=== PATIENT | male | born 1935 | race Two or more races ===

== ENCOUNTER 2016-08-26 12:59 | Emergency (ER) | payer MEDICARE ==
[~2016-08-26] VITALS: Ht 167.6 cm; Wt 53.3 kg
[2016-08-26] MEDS ORDERED: BLOOD PRESSURE MEDS (13:27)
[2016-08-26] MEDS ORDERED: LOVA10TA PO (13:27)
[2016-08-26] MEDS ORDERED: METF10002 PO (13:27)
[2016-08-26] MEDS ORDERED: GLIP5TAB10 PO (13:27)
[2016-08-26] MEDS ORDERED: SODIUM CHLORIDE 0.9% 1,000ML IVBOLUS ONE ×2 (14:00→15:00)
[2016-08-26] MEDS ORDERED: SODIUM CHLORIDE FLUSH 10ML SYR IVF ONE (14:00)
[2016-08-26 14:46] LABS: ASPARTATE AMINO TRANSFERASE 19 U/L (15-37); BLOOD UREA NITROGEN 10 mg/dL (7-18)
[2016-08-26] MEDS ORDERED: MECLIZINE CHEWABLE 25 MG TAB PO ONE (15:00)
[2016-08-26] MEDS ORDERED: MECLIZINE CHEWABLE 25 MG TAB ONE (15:06)
[2016-08-26] MEDS ORDERED: PLEASE ENTER ALLERGIES MC SCH ×2 (15:30)
[2016-08-26 17:33] VITALS: BP 208/75
== END 2016-08-26 17:36 | disposition home or self-care (01) ==
LOC: ED 17:30
DX: R42 Dizziness and giddiness (principal); I10 Essential (primary) hypertension; R11.2 Nausea with vomiting, unspecified; E78.5 Hyperlipidemia, unspecified; Z87.891 Personal history of nicotine dependence; E11.9 Type 2 diabetes mellitus without complications
CPT/HCPCS: 36415; 70450; 71010; 80053; 81003; 83690; 85025; 93005; 96360; 96361; 99285; J7030

== ENCOUNTER 2016-08-29 12:17 | Inpatient (IN) | payer MEDICARE ==
[~2016-08-29] VITALS: Ht 167.6 cm; Wt 53.7 kg
[~2016-08-29 12:17] MED LIST: BLOOD PRESSURE MEDS; GLIP5TAB10 PO; LOVA10TA PO; METF10002 PO
[2016-08-29] MEDS ORDERED: LORSARTAN PO (12:47)
[2016-08-29] MEDS ORDERED: SUPER BETA PROSTATE PO (12:55)
[2016-08-29 14:01] LABS: BLOOD UREA NITROGEN 9 mg/dL (7-18)
[2016-08-29 14:33] LABS: IS PT STATUS REG ER OR PRE ER? YES
[2016-08-29] MEDS ORDERED: GADOBUTROL 7.5 MMOL/7.5 ML PFS ONE (14:34)
[2016-08-29] MEDS ORDERED: GLUCAGON 1 MG IM PRN (15:00)
[2016-08-29] MEDS ORDERED: BISACODYL 10 MG SUPP PR PRN (15:00)
[2016-08-29] MEDS ORDERED: POLYETHYLENE GLYCOL 17 GM PACKET PO PRN (15:00)
[2016-08-29] MEDS ORDERED: DEXTROSE 50%, 50ML SYRINGE IVPush PRN (15:00)
[2016-08-29] MEDS ORDERED: DEXTROSE 4 GM TAB.CHEW PO PRN (15:00)
[2016-08-29] MEDS ORDERED: LABETALOL 5MG/ML, 20ML IVPush PRN (15:00)
[2016-08-29] MEDS ORDERED: ONDANSETRON 2MG/ML, 2ML IVP PRN (15:00)
[2016-08-29] MEDS ORDERED: ACETAMINOPHEN 325 MG TABLET PO PRN (15:00)
[2016-08-29 15:31] LABS: IS PT STATUS REG ER OR PRE ER? YES
[2016-08-29] MEDS: INSULIN ASPART 100 UNITS/ML, PEN SQ-INSULIN SCH ×2 (16:54→21:27)
[2016-08-29 17:01] VITALS: BP 194/72
[2016-08-29] MEDS: ENOXAPARIN 40 MG/0.4 ML SQ SCH (17:17)
[2016-08-29] MEDS: ENALAPRILAT 1.25 MG/ML, 2ML IV PRN (17:17)
[2016-08-29 20:35] VITALS: BP 145/65
[2016-08-29 20:55] LABS: IS PT STATUS REG ER OR PRE ER? NO
[2016-08-29] MEDS: SODIUM CHLORIDE FLUSH 10ML SYR IVF SCH (21:27)
[2016-08-30 02:53] VITALS: BP 171/71
[2016-08-30 05:51] LABS: ASPARTATE AMINO TRANSFERASE 16 U/L (15-37); BLOOD UREA NITROGEN 11 mg/dL (7-18)
[2016-08-30] MEDS: INSULIN ASPART 100 UNITS/ML, PEN SQ-INSULIN SCH ×4 (07:00→20:17)
[2016-08-30 07:42] VITALS: BP 196/79
[2016-08-30] MEDS: ENALAPRILAT 1.25 MG/ML, 2ML IV PRN ×2 (08:16→15:05)
[2016-08-30] MEDS: SODIUM CHLORIDE FLUSH 10ML SYR IVF SCH ×2 (08:16→20:16)
[2016-08-30] MEDS: LOSARTAN 50MG TABLET PO SCH (08:17)
[2016-08-30] MEDS ORDERED: OMNIPAQUE 350 MG/ML, 100ML BOTTLE ONE (12:15)
[2016-08-30] MEDS: AMLODIPINE 5 MG TABLET PO SCH (13:01)
[2016-08-30 14:00] VITALS: BP 197/80
[2016-08-30 20:00] VITALS: BP_SYST 183; BP_SYST 186; BP_DIAS 69; BP_DIAS 70
[2016-08-30 20:11] VITALS: BP_SYST 174; BP_SYST 193; BP_DIAS 70; BP_DIAS 74
[2016-08-30] MEDS: ATORVASTATIN 20 MG TABLET PO SCH (20:16)
[2016-08-30] MEDS: ENOXAPARIN 40 MG/0.4 ML SQ SCH (20:16)
[2016-08-31 03:45] VITALS: BP_SYST 192; BP_SYST 197; BP_DIAS 76; BP_DIAS 77
[2016-08-31] MEDS: ENALAPRILAT 1.25 MG/ML, 2ML IV PRN (04:08)
[2016-08-31 04:47] VITALS: BP 184/87
[2016-08-31 06:28] LABS: BLOOD UREA NITROGEN 13 mg/dL (7-18)
[2016-08-31] MEDS: INSULIN ASPART 100 UNITS/ML, PEN SQ-INSULIN SCH ×4 (08:04→20:47)
[2016-08-31] MEDS: LOSARTAN 50MG TABLET PO SCH (08:04)
[2016-08-31] MEDS: AMLODIPINE 5 MG TABLET PO SCH ×2 (08:04→20:47)
[2016-08-31 08:21] VITALS: BP 174/71
[2016-08-31 11:38] VITALS: BP 179/74
[2016-08-31] MEDS: SODIUM CHLORIDE FLUSH 10ML SYR IVF SCH ×2 (11:45→20:46)
[2016-08-31] MEDS: CLOPIDOGREL 75 MG TABLET PO SCH (12:30)
[2016-08-31 12:32] VITALS: BP 165/77
[2016-08-31] MEDS: ENOXAPARIN 40 MG/0.4 ML SQ SCH (17:28)
[2016-08-31 19:18] VITALS: BP 166/68
[2016-08-31] MEDS: ATORVASTATIN 20 MG TABLET PO SCH (20:47)
[2016-09-01 01:39] VITALS: BP 206/85
[2016-09-01] MEDS: ENALAPRILAT 1.25 MG/ML, 2ML IV PRN (01:58)
[2016-09-01 03:09] VITALS: BP 179/71
[2016-09-01 06:06] LABS: BLOOD UREA NITROGEN 16 mg/dL (7-18)
[2016-09-01 07:15] VITALS: BP 179/82
[2016-09-01 09:15] VITALS: BP 161/80
[2016-09-01] MEDS: INSULIN ASPART 100 UNITS/ML, PEN SQ-INSULIN SCH ×2 (09:16→13:01)
[2016-09-01] MEDS: CLOPIDOGREL 75 MG TABLET PO SCH (09:18)
[2016-09-01] MEDS: AMLODIPINE 5 MG TABLET PO SCH (09:19)
[2016-09-01] MEDS: LOSARTAN 50MG TABLET PO SCH (09:19)
[2016-09-01] MEDS: SODIUM CHLORIDE FLUSH 10ML SYR IVF SCH (09:19)
[2016-09-01 10:05] VITALS: BP 149/74
[2016-09-01] MEDS ORDERED: CLOP75TA PO (10:34)
[2016-09-01] MEDS ORDERED: AMLO5TAB2 PO (10:34)
[2016-09-01] MEDS ORDERED: ATOR20TA9 PO (10:34)
[2016-09-01] MEDS ORDERED: CLON0.1T12 PO (10:34)
[2016-09-01 12:38] VITALS: BP 126/74
== END 2016-09-01 15:51 | disposition home or self-care (01) | DRG 73 ==
LOC: ED 14:01 → EDIP 14:02 → SUATTDRO 14:06 → 5SO 16:36
PROVIDERS: ADMIT Internal Medicine; ATTEND Internal Medicine
DX: G90.8 Other disorders of autonomic nervous system (principal); I63.9 Cerebral infarction, unspecified; I10 Essential (primary) hypertension; Z86.73 Personal history of transient ischemic attack (TIA), and cerebral infarction without residual deficits; E11.9 Type 2 diabetes mellitus without complications; E78.5 Hyperlipidemia, unspecified; I65.02 Occlusion and stenosis of left vertebral artery; I70.1 Atherosclerosis of renal artery; Z85.46 Personal history of malignant neoplasm of prostate; Z87.891 Personal history of nicotine dependence; Z88.2 Allergy status to sulfonamides
CPT/HCPCS: 36415; 70450; 70496; 70498; 70553; 71010; 80048; 80053; 80061; 81003; 82040; 82962; 83690; 84443; 84484; 85025; 87324; 93005; 93306; 93975; 96360; 96361; A9585; J1650; Q9967; J7030

== ENCOUNTER → 2016-11-12 | Outpatient (CLI) | payer MEDICARE ==
[~2016-11-12] MED LIST changes: +AMLO5TAB2 PO; +ATOR20TA9 PO; +CLON0.1T12 PO; +CLOP75TA PO; +LORSARTAN PO; +OMNIPAQUE 350 MG/ML, 100ML BOTTLE ONE; +SUPER BETA PROSTATE PO
== END | disposition home or self-care (01) ==
LOC: CFH 12:09
PROVIDERS: ATTEND Surgery
DX: I70.1 Atherosclerosis of renal artery (principal); I10 Essential (primary) hypertension; N20.0 Calculus of kidney
CPT/HCPCS: 74175; Q9967

== ENCOUNTER → 2017-10-16 | Outpatient (CLI) | payer MEDICARE ==
[~2017-10-16] MED LIST changes: -OMNIPAQUE 350 MG/ML, 100ML BOTTLE ONE
== END | disposition home or self-care (01) ==
LOC: RAD 09:54
PROVIDERS: ATTEND Family Medicine
DX: R13.10 Dysphagia, unspecified (principal)
CPT/HCPCS: 74230

== ENCOUNTER 2018-05-12 08:31 | Inpatient (IN) | payer MEDICARE ==
[~2018-05-12] VITALS: Ht 167.6 cm; Wt 60.2 kg
[~2018-05-12 08:31] MED LIST changes: +AMLO-150 PO; -AMLO5TAB2 PO; +ATOR20TA37 PO; -ATOR20TA9 PO
--- NOTE | 2018-05-12 08:49 | NUR ---
Pt brought in by EMS with c/o cough, fever, and green sputum. Pt's family called paramedics due to pt having rapid respirations, moaning, and cough from pt. 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 Pt has a feeding tube in place due to inability to swallow post stroke. Pt's family reports he has had a cough for two days and cold sweat starting at night. Pt does not wear oxygen at baseline at home. Pt's family states he is altered from his baseline. Pt is febrile with 101.6 rectal temp, tachycardic in 90-120's, pulse ox is 89% on room air, RR is 27, BP is 149/44. ED MD at bedside. Pt's family concerned that he had a stroke over night. Pt's family states his baseline speech is comprehensible compared to today. Pt requiring oxygen at 2L to maintain spo2% above 90%. Pt's skin is intact. All safety measures in place. Call light within reach. Suction set up for pt.
[2018-05-12] MEDS ORDERED: ACETAMINOPHEN 650 MG/20.3 ML UDC GT ONE (09:00)
[2018-05-12] MEDS ORDERED: SODIUM CHLORIDE 0.9% 1,000ML IVBOLUS ONE ×2 (09:00→09:30)
[2018-05-12] MEDS ORDERED: SODIUM CHLORIDE FLUSH 10ML SYR IVF ONE (09:00)
[2018-05-12] MEDS ORDERED: ACETAMINOPHEN 650 MG/20.3 ML UDC ONE (09:09)
[2018-05-12 09:34] LABS: MEAN CORPUSCULAR HEMOGLOBIN 31.9 pg (27.5-34.5); MEAN CORPUSCULAR HGB CONC 34.3 g/dL (33.2-36.2); MEAN CORPUSCULAR VOLUME 92.9 fL (81-97); MEAN PLATELET VOLUME 10.8 fL (7.4-10.4); PLATELET COUNT 243 x10^3/uL (130-400); RED CELL DISTRIBUTION WIDTH 13.4 % (9.4-14.8)
[2018-05-12 09:38] LABS: RAPID INFLUENZA A Negative (Negative); RAPID INFLUENZA B Negative (Negative)
--- NOTE | 2018-05-12 09:41 | NUR ---
Pt transported to CT on [facility]. Family member accomponied pt to CT.
[2018-05-12 09:46] LABS: ALBUMIN 3.4 g/dL (3.4-5.0); ANION GAP 11 mmol/L (5-15); CALCIUM 9.7 mg/dL (8.5-10.1); CHLORIDE 105 mmol/L (98-107)
[2018-05-12 09:49] LABS: ALANINE AMINOTRANSFERASE 27 U/L (12-78); ALKALINE PHOSPHATASE 97 U/L (45-117); BILIRUBIN,TOTAL 1.2 mg/dL (0.2-1.0); CREATININE 1.17 mg/dL (0.7-1.3); TOTAL PROTEIN 8.3 g/dL (6.4-8.2)
[2018-05-12 10:14] LABS: MD YES
[2018-05-12 10:15] LABS: BANDS%(MANUAL) 6 % (0-7); LYMPH#(MANUAL) 0.57 x10^3/uL (1-3.4); LYMPHS% (MANUAL) 2 % (22-44); MONOS#(MANUAL) 1.42 x10^3/uL (0.3-2.7); MONOS% (MANUAL) 5 % (2-9); SEG#(MANUAL) 24.62 x10^3/uL (1.8-6.8); SEGS% (MANUAL) 87 % (42-75)
[2018-05-12 10:16] LABS: <PLATELET ESTIMATE> ADEQUATE; <RBC MORPHOLOGY> NORMAL; LARGE PLATELETS 1+
[2018-05-12] MEDS ORDERED: CEFTRIAXONE PMX 1GM/50ML 50 ML ONE (10:48)
[2018-05-12] MEDS ORDERED: CEFTRIAXONE PMX 1GM/50ML 50 ML IV ONE (11:00)
[2018-05-12] MEDS ORDERED: AZITHROMYCIN 500 MG in SODIUM CHLORIDE 0.9% 250 ML IVPB ONE (11:00)
[2018-05-12] MEDS ORDERED: CEFTRIAXONE PMX 1GM/50ML 50 ML IVPB ONE (11:00)
--- NOTE | 2018-05-12 12:02 | NUR ---
Pt is resting on gurney. Pt's is at bedside. PIV fluids infusing per sepsis protocol and medications infusing per EMAR and sepsis protocol. Urine sample sent per MD order. NADN. All safety measures in place. call light within reach. Pt rectal temp down to 99.5 at this time post medicaiton.
[2018-05-12] MEDS ORDERED: LOSA100T14 GT (12:22)
[2018-05-12] MEDS ORDERED: ATOR10TA GT (12:22)
[2018-05-12] MEDS ORDERED: CALC-116 GT (12:34)
[2018-05-12] MEDS ORDERED: OMEP-110 GT (12:34)
[2018-05-12] MEDS ORDERED: HUM100VI6 SQ (12:34)
[2018-05-12] MEDS ORDERED: SENN-52 GT (12:34)
[2018-05-12] MEDS ORDERED: LEVE100S GT (12:34)
[2018-05-12] MEDS ORDERED: SENN8.6T64 GT (12:34)
[2018-05-12] MEDS ORDERED: FURO20TA3 GT (12:34)
[2018-05-12] MEDS ORDERED: NUT.237L23 GT (12:34)
[2018-05-12] MEDS ORDERED: FLUTICASONE PROP NAS (12:34)
[2018-05-12] MEDS ORDERED: D3 GT (12:34)
[2018-05-12] MEDS ORDERED: SITA50TA GT (12:34)
[2018-05-12 12:51] LABS: MICROSCOPIC INDICATED
[2018-05-12 13:14] LABS: CULTURE INDICATED? YES
[2018-05-12] MEDS ORDERED: SODIUM CHLORIDE FLUSH 10ML SYR IVF PRN (13:30)
[2018-05-12] MEDS ORDERED: DOXYCYCLINE 100 MG in DEXTROSE 5% 250 ML IV SCH (14:30)
[2018-05-12] MEDS ORDERED: ONDANSETRON 2MG/ML, 2ML IVPush PRN (14:30)
--- NOTE | 2018-05-12 14:46 | NUR ---
Provided report to ROYA Busby. All questions answered. Pt ready to transfer to floor from ED.
[2018-05-12] MEDS: HEPARIN 5,000 UNITS/ML, 1ML SQ SCH ×2 (15:00→23:00)
[2018-05-12] MEDS ORDERED: ALBUTEROL/IPRATROPIUM 2.5MG/0.5MG, 3 ML ONE (15:32)
[2018-05-12 15:37] VITALS: BP 131/53
[2018-05-12 15:47] LABS: HEMOGLOBIN A1C 8.3 % (4.2-6.3)
--- NOTE | 2018-05-12 15:56 | NUR ---
PT TRANSFERED TO FLOOR FROM ED AND LEFT WITH ALL PERSONAL BELONGINGS.
[2018-05-12] MEDS ORDERED: ALBUTEROL SULFATE 2.5 MG/3 ML NPPB PRN (16:00)
[2018-05-12] MEDS ORDERED: NUT TX GLUC INTOLER LAC FR SOY GT SCH (16:00)
[2018-05-12] MEDS: PIPERACILLIN/TAZO/PMX 3.375GM 50 ML IV SCH ×2 (17:22→22:35)
[2018-05-12] MEDS: SODIUM CHLORIDE 0.9% 1,000 ML IV SCH (17:23)
[2018-05-12] MEDS: INSULIN LISPRO 100 UNITS/ML, PEN SQ-INSULIN SCH ×2 (18:16→19:33)
[2018-05-12 18:50] VITALS: BP 158/57
[2018-05-12] MEDS: INSULIN HUMULIN 70/30, 3ML PEN SQ-INSULIN SCH (19:35)
[2018-05-12] MEDS: LEVETIRACETAM 100 MG/ML ORAL SOL GT SCH (20:00)
[2018-05-12] MEDS: ATORVASTATIN 10 MG TABLET GT SCH (20:00)
[2018-05-12] MEDS ORDERED: OMEPRAZOLE 20 MG CAPSULE.DR GT SCH (21:00)
[2018-05-13 02:20] VITALS: BP 138/75
[2018-05-13] MEDS: PIPERACILLIN/TAZO/PMX 3.375GM 50 ML IV SCH ×4 (05:06→23:21)
[2018-05-13] MEDS: SODIUM CHLORIDE 0.9% 1,000 ML IV SCH ×2 (05:07→15:00)
[2018-05-13 05:27] LABS: MEAN CORPUSCULAR HEMOGLOBIN 32.5 pg (27.5-34.5); MEAN CORPUSCULAR HGB CONC 34.6 g/dL (33.2-36.2); MEAN CORPUSCULAR VOLUME 94.1 fL (81-97); MEAN PLATELET VOLUME 10.6 fL (7.4-10.4); PLATELET COUNT 211 x10^3/uL (130-400); RED BLOOD COUNT 3.69 x10^6/uL (4.38-5.82); RED CELL DISTRIBUTION WIDTH 13.5 % (9.4-14.8)
[2018-05-13 05:35] LABS: CHLORIDE 113 mmol/L (98-107)
[2018-05-13 05:42] LABS: ALANINE AMINOTRANSFERASE 20 U/L (12-78); ALBUMIN 2.7 g/dL (3.4-5.0); ALKALINE PHOSPHATASE 77 U/L (45-117); ANION GAP 8 mmol/L (5-15); BILIRUBIN,TOTAL 0.8 mg/dL (0.2-1.0); CREATININE 0.78 mg/dL (0.7-1.3); TOTAL PROTEIN 7.1 g/dL (6.4-8.2)
[2018-05-13 05:53] LABS: BASOPHILS # (AUTO) 0.06 x10^3/uL (0-0.1); BASOPHILS % (AUTO) 0 % (0-1); EOSINOPHILS # (AUTO) 0.29 x10^3/uL (0-0.4); EOSINOPHILS % (AUTO) 2 % (1-7); LYMPHOCYTES # (AUTO) 1.16 x10^3/uL (1-3.4); LYMPHOCYTES % (AUTO) 6 % (22-44); MD SCAN; MONOCYTES # (AUTO) 0.69 x10^3/uL (0.2-0.8); MONOCYTES % (AUTO) 4 % (2-9); NEUTROPHILS # (AUTO) 17.12 x10^3/uL (1.8-6.8); NEUTROPHILS % (AUTO) 89 % (42-75)
[2018-05-13 06:40] VITALS: BP 151/71
[2018-05-13] MEDS: HEPARIN 5,000 UNITS/ML, 1ML SQ SCH ×3 (07:00→23:21)
[2018-05-13] MEDS ORDERED: INSULIN LISPRO 100 UNITS/ML, PEN SQ-INSULIN SCH ×2 (09:00→11:00)
[2018-05-13] MEDS: CALCIUM/VITAMIN D3 250-125 TABLET GT SCH (09:17)
[2018-05-13] MEDS: LEVETIRACETAM 100 MG/ML ORAL SOL GT SCH ×2 (09:18→22:04)
[2018-05-13] MEDS: PANTOPRAZOLE GRAN. PKT 40 MG GT SCH ×2 (09:18→16:59)
[2018-05-13] MEDS: LOSARTAN 50MG TABLET GT SCH (09:18)
[2018-05-13] MEDS: FLUTICASONE NASAL SPRAY 16GM NAS SCH (09:18)
[2018-05-13] MEDS: INSULIN HUMULIN 70/30, 3ML PEN SQ-INSULIN SCH ×2 (09:19→22:06)
[2018-05-13] MEDS ORDERED: CEFTRIAXONE PMX 1GM/50ML 50 ML IV SCH (11:00)
[2018-05-13] MEDS: NEUTRA PHOS K 250 MG TABLET GT SCH ×3 (11:22→22:04)
[2018-05-13 12:30] VITALS: BP 140/53
[2018-05-13] MEDS: INSULIN LISPRO 100 UNITS/ML, PEN SQ-INSULIN SCH ×2 (15:00→22:06)
[2018-05-13 18:52] VITALS: BP 163/73
[2018-05-13] MEDS: ATORVASTATIN 10 MG TABLET GT SCH (22:04)
[2018-05-14] MEDS: SODIUM CHLORIDE 0.9% 1,000 ML IV SCH (01:39)
[2018-05-14 02:20] VITALS: BP 153/69
[2018-05-14] MEDS: INSULIN LISPRO 100 UNITS/ML, PEN SQ-INSULIN SCH ×4 (03:22→22:34)
[2018-05-14] MEDS: PIPERACILLIN/TAZO/PMX 3.375GM 50 ML IV SCH ×4 (04:53→23:00)
[2018-05-14 04:57] LABS: MEAN CORPUSCULAR HEMOGLOBIN 32.1 pg (27.5-34.5); MEAN CORPUSCULAR HGB CONC 34.1 g/dL (33.2-36.2); MEAN CORPUSCULAR VOLUME 94.2 fL (81-97); MEAN PLATELET VOLUME 10.4 fL (7.4-10.4); PLATELET COUNT 207 x10^3/uL (130-400); RED BLOOD COUNT 3.69 x10^6/uL (4.38-5.82); RED CELL DISTRIBUTION WIDTH 13.4 % (9.4-14.8)
[2018-05-14 05:09] LABS: ALBUMIN 2.6 g/dL (3.4-5.0); ANION GAP 6 mmol/L (5-15); CALCIUM 8.7 mg/dL (8.5-10.1); CHLORIDE 115 mmol/L (98-107)
[2018-05-14 05:14] LABS: ALANINE AMINOTRANSFERASE 22 U/L (12-78); ALKALINE PHOSPHATASE 83 U/L (45-117); BILIRUBIN,TOTAL 0.7 mg/dL (0.2-1.0); CREATININE 0.62 mg/dL (0.7-1.3); TOTAL PROTEIN 7.1 g/dL (6.4-8.2)
[2018-05-14 05:22] LABS: BASOPHILS # (AUTO) 0.03 x10^3/uL (0-0.1); BASOPHILS % (AUTO) 0 % (0-1); EOSINOPHILS # (AUTO) 0.15 x10^3/uL (0-0.4); EOSINOPHILS % (AUTO) 1 % (1-7); LYMPHOCYTES # (AUTO) 1.14 x10^3/uL (1-3.4); LYMPHOCYTES % (AUTO) 7 % (22-44); MD SCAN; MONOCYTES # (AUTO) 0.81 x10^3/uL (0.2-0.8); MONOCYTES % (AUTO) 5 % (2-9); NEUTROPHILS # (AUTO) 14.46 x10^3/uL (1.8-6.8); NEUTROPHILS % (AUTO) 87 % (42-75)
[2018-05-14 06:43] VITALS: BP 156/71
[2018-05-14] MEDS: HEPARIN 5,000 UNITS/ML, 1ML SQ SCH ×3 (07:00→23:00)
[2018-05-14] MEDS: POTASSIUM CHLORIDE 20 MEQ TAB.ER.PRT PO ONE ×2 (07:00→08:56)
[2018-05-14] MEDS: POTASSIUM CHLORIDE 20 MEQ in SODIUM CHLORIDE 0.45% 1,000 ML IV SCH (08:55)
[2018-05-14] MEDS: CALCIUM/VITAMIN D3 250-125 TABLET GT SCH (08:56)
[2018-05-14] MEDS: PANTOPRAZOLE GRAN. PKT 40 MG GT SCH ×2 (08:56→16:59)
[2018-05-14] MEDS: LOSARTAN 50MG TABLET GT SCH (08:56)
[2018-05-14] MEDS: LEVETIRACETAM 100 MG/ML ORAL SOL GT SCH ×2 (08:57→21:44)
[2018-05-14] MEDS: INSULIN HUMULIN 70/30, 3ML PEN SQ-INSULIN SCH ×2 (08:57→22:35)
[2018-05-14] MEDS: FLUTICASONE NASAL SPRAY 16GM NAS SCH (08:57)
[2018-05-14] MEDS ORDERED: POTASSIUM CHLORIDE 10% 40 MEQ/30 ML UDC PO ONE (09:30)
[2018-05-14 12:36] LABS: ANION GAP 10 mmol/L (5-15); CALCIUM 8.6 mg/dL (8.5-10.1); CHLORIDE 115 mmol/L (98-107); CREATININE 0.81 mg/dL (0.7-1.3)
[2018-05-14] MEDS ORDERED: ALBUTEROL SULFATE 2.5 MG/3 ML NPPB PRN (13:00)
[2018-05-14 15:47] VITALS: BP 159/73
[2018-05-14 18:43] VITALS: BP 151/73
[2018-05-14] MEDS: ATORVASTATIN 10 MG TABLET GT SCH (21:44)
[2018-05-14] MEDS: NEUTRA PHOS K 250 MG TABLET PEG SCH (21:44)
[2018-05-15] MEDS: POTASSIUM CHLORIDE 20 MEQ in SODIUM CHLORIDE 0.45% 1,000 ML IV SCH (00:36)
[2018-05-15 01:57] VITALS: BP 170/70
[2018-05-15] MEDS: INSULIN LISPRO 100 UNITS/ML, PEN SQ-INSULIN SCH ×4 (03:05→20:52)
[2018-05-15 05:32] LABS: BASOPHILS # (AUTO) 0.03 x10^3/uL (0-0.1); BASOPHILS % (AUTO) 0 % (0-1); EOSINOPHILS # (AUTO) 0.19 x10^3/uL (0-0.4); EOSINOPHILS % (AUTO) 2 % (1-7); LYMPHOCYTES # (AUTO) 1.07 x10^3/uL (1-3.4); LYMPHOCYTES % (AUTO) 12 % (22-44); MD NO; MEAN CORPUSCULAR HEMOGLOBIN 31.5 pg (27.5-34.5); MEAN CORPUSCULAR HGB CONC 33.8 g/dL (33.2-36.2); MEAN CORPUSCULAR VOLUME 92.9 fL (81-97); MEAN PLATELET VOLUME 10.2 fL (7.4-10.4); MONOCYTES # (AUTO) 0.68 x10^3/uL (0.2-0.8); MONOCYTES % (AUTO) 7 % (2-9); NEUTROPHILS # (AUTO) 7.29 x10^3/uL (1.8-6.8); NEUTROPHILS % (AUTO) 79 % (42-75); PLATELET COUNT 210 x10^3/uL (130-400); RED BLOOD COUNT 3.23 x10^6/uL (4.38-5.82); RED CELL DISTRIBUTION WIDTH 13.5 % (9.4-14.8)
[2018-05-15 05:40] LABS: ALANINE AMINOTRANSFERASE 38 U/L (12-78); ALBUMIN 2.1 g/dL (3.4-5.0); ANION GAP 7 mmol/L (5-15); CHLORIDE 115 mmol/L (98-107)
[2018-05-15 05:42] LABS: ALKALINE PHOSPHATASE 100 U/L (45-117); BILIRUBIN,TOTAL 0.6 mg/dL (0.2-1.0); TOTAL PROTEIN 6.3 g/dL (6.4-8.2)
[2018-05-15] MEDS: PIPERACILLIN/TAZO/PMX 3.375GM 50 ML IV SCH (06:21)
[2018-05-15] MEDS: HEPARIN 5,000 UNITS/ML, 1ML SQ SCH (06:22)
[2018-05-15] MEDS ORDERED: POTASSIUM CHLORIDE 20 MEQ PACKET PO ONE (08:00)
[2018-05-15 09:47] VITALS: BP 156/74
[2018-05-15] MEDS: LEVETIRACETAM 100 MG/ML ORAL SOL GT SCH ×2 (09:56→20:27)
[2018-05-15] MEDS: NEUTRA PHOS K 250 MG TABLET PEG SCH ×2 (09:56→20:27)
[2018-05-15] MEDS: PANTOPRAZOLE GRAN. PKT 40 MG GT SCH ×2 (09:56→18:30)
[2018-05-15] MEDS: LOSARTAN 50MG TABLET GT SCH (09:56)
[2018-05-15] MEDS: CALCIUM/VITAMIN D3 250-125 TABLET GT SCH (09:57)
[2018-05-15] MEDS: FLUTICASONE NASAL SPRAY 16GM NAS SCH (09:58)
[2018-05-15] MEDS: INSULIN HUMULIN 70/30, 3ML PEN SQ-INSULIN SCH ×2 (09:59→20:51)
[2018-05-15] MEDS: CEFTRIAXONE PMX 1GM/50ML 50 ML IV SCH (11:13)
[2018-05-15 12:32] VITALS: BP 154/70
[2018-05-15] MEDS: METRONIDAZOLE PMX 500MG/100ML 100 ML IV SCH ×2 (12:35→19:55)
[2018-05-15] MEDS: ENOXAPARIN 40 MG/0.4 ML SQ SCH (12:35)
[2018-05-15 15:34] VITALS: BP 157/72
[2018-05-15 17:38] LABS: CLOSTRIDIUM DIFFICILE ANTIGEN NEGATIVE; CLOSTRIDIUM DIFFICILE TOXIN NEGATIVE (Negative)
[2018-05-15 19:35] VITALS: BP 160/71
[2018-05-15] MEDS: ATORVASTATIN 10 MG TABLET GT SCH (20:27)
[2018-05-16] MEDS: INSULIN LISPRO 100 UNITS/ML, PEN SQ-INSULIN SCH ×4 (03:11→21:24)
[2018-05-16] MEDS: METRONIDAZOLE PMX 500MG/100ML 100 ML IV SCH ×3 (03:54→20:04)
[2018-05-16 04:55] VITALS: BP 165/80
[2018-05-16 06:00] LABS: BASOPHILS % (AUTO) 0 % (0-1); EOSINOPHILS # (AUTO) 0.22 x10^3/uL (0-0.4); EOSINOPHILS % (AUTO) 3 % (1-7); LYMPHOCYTES # (AUTO) 1.04 x10^3/uL (1-3.4); LYMPHOCYTES % (AUTO) 13 % (22-44); MD NO; MEAN CORPUSCULAR HEMOGLOBIN 31.2 pg (27.5-34.5); MEAN CORPUSCULAR HGB CONC 33.4 g/dL (33.2-36.2); MEAN CORPUSCULAR VOLUME 93.6 fL (81-97); MEAN PLATELET VOLUME 10.6 fL (7.4-10.4); MONOCYTES # (AUTO) 0.67 x10^3/uL (0.2-0.8); MONOCYTES % (AUTO) 9 % (2-9); NEUTROPHILS # (AUTO) 5.87 x10^3/uL (1.8-6.8); NEUTROPHILS % (AUTO) 75 % (42-75); PLATELET COUNT 228 x10^3/uL (130-400); RED BLOOD COUNT 3.45 x10^6/uL (4.38-5.82); RED CELL DISTRIBUTION WIDTH 13.2 % (9.4-14.8)
[2018-05-16 06:06] LABS: ALANINE AMINOTRANSFERASE 40 U/L (12-78); ALBUMIN 2.1 g/dL (3.4-5.0); ANION GAP 9 mmol/L (5-15); CHLORIDE 113 mmol/L (98-107); CREATININE 0.54 mg/dL (0.7-1.3)
[2018-05-16 06:08] LABS: ALKALINE PHOSPHATASE 113 U/L (45-117); BILIRUBIN,TOTAL 0.4 mg/dL (0.2-1.0); TOTAL PROTEIN 6.5 g/dL (6.4-8.2)
[2018-05-16] MEDS ORDERED: FUROSEMIDE 20 MG TABLET GT SCH (09:00)
[2018-05-16 09:50] VITALS: BP 185/80
[2018-05-16] MEDS: INSULIN HUMULIN 70/30, 3ML PEN SQ-INSULIN SCH ×2 (10:02→21:23)
[2018-05-16] MEDS: LEVETIRACETAM 100 MG/ML ORAL SOL GT SCH ×2 (10:03→21:22)
[2018-05-16] MEDS: LOSARTAN 50MG TABLET GT SCH (10:03)
[2018-05-16] MEDS: CALCIUM/VITAMIN D3 250-125 TABLET GT SCH (10:04)
[2018-05-16] MEDS: FLUTICASONE NASAL SPRAY 16GM NAS SCH (10:04)
[2018-05-16] MEDS: NEUTRA PHOS K 250 MG TABLET PEG SCH ×2 (10:04→21:22)
[2018-05-16] MEDS: PANTOPRAZOLE GRAN. PKT 40 MG GT SCH ×2 (10:04→15:32)
[2018-05-16] MEDS ORDERED: POLYETHYLENE GLYCOL 17 GM PACKET GT ONE (11:00)
[2018-05-16] MEDS: DOCUSATE 50 MG/5 ML, 10ML UDC GT SCH (11:24)
[2018-05-16] MEDS: CEFTRIAXONE PMX 1GM/50ML 50 ML IV SCH (11:24)
[2018-05-16] MEDS: ENOXAPARIN 40 MG/0.4 ML SQ SCH (12:53)
[2018-05-16 14:00] VITALS: BP 168/80
[2018-05-16] MEDS ORDERED: ACETAMINOPHEN 325 MG TABLET PEG PRN (17:30)
[2018-05-16 19:18] VITALS: BP 161/71
[2018-05-16] MEDS ORDERED: ALBUTEROL SULFATE 2.5 MG/3 ML NPPB PRN (20:30)
[2018-05-16] MEDS: ATORVASTATIN 10 MG TABLET GT SCH (21:22)
[2018-05-16] MEDS: FUROSEMIDE 20 MG TABLET GT SCH (21:23)
[2018-05-17 00:44] VITALS: BP 170/81
[2018-05-17] MEDS: INSULIN LISPRO 100 UNITS/ML, PEN SQ-INSULIN SCH ×4 (04:04→22:52)
[2018-05-17] MEDS: METRONIDAZOLE PMX 500MG/100ML 100 ML IV SCH ×3 (04:06→22:25)
[2018-05-17 06:04] LABS: ANION GAP 9 mmol/L (5-15); CALCIUM 8.3 mg/dL (8.5-10.1); CHLORIDE 111 mmol/L (98-107)
[2018-05-17 06:07] LABS: CREATININE 0.53 mg/dL (0.7-1.3)
[2018-05-17] MEDS: POTASSIUM CHLORIDE 20 MEQ PACKET GT SCH (08:00)
[2018-05-17] MEDS: PANTOPRAZOLE GRAN. PKT 40 MG GT SCH ×2 (08:00→17:10)
[2018-05-17 08:41] VITALS: BP 161/62
[2018-05-17] MEDS: INSULIN HUMULIN 70/30, 3ML PEN SQ-INSULIN SCH ×2 (09:00→22:53)
[2018-05-17] MEDS: LEVETIRACETAM 100 MG/ML ORAL SOL GT SCH ×2 (09:00→22:25)
[2018-05-17] MEDS: NEUTRA PHOS K 250 MG TABLET PEG SCH ×2 (09:00→22:24)
[2018-05-17] MEDS: FUROSEMIDE 20 MG TABLET GT SCH ×2 (09:00→22:24)
[2018-05-17] MEDS: AMLODIPINE 5 MG TABLET PO SCH (09:00)
[2018-05-17] MEDS: FLUTICASONE NASAL SPRAY 16GM NAS SCH (09:00)
[2018-05-17] MEDS: DOCUSATE 50 MG/5 ML, 10ML UDC GT SCH (09:00)
[2018-05-17] MEDS: CALCIUM/VITAMIN D3 250-125 TABLET GT SCH (09:00)
[2018-05-17] MEDS: TEMPLATE NON-FORMULARY MED. (Sitagliptin Phosphate** (Januvia**) 50 MG) GT SCH (09:00)
[2018-05-17] MEDS: LOSARTAN 50MG TABLET GT SCH (09:00)
[2018-05-17] MEDS: CEFTRIAXONE PMX 1GM/50ML 50 ML IV SCH (11:33)
[2018-05-17] MEDS: GUAIFENESIN 100 MG/5 ML, 5ML UDC GT SCH ×3 (12:16→22:53)
[2018-05-17] MEDS: ENOXAPARIN 40 MG/0.4 ML SQ SCH (14:00)
[2018-05-17 15:40] VITALS: BP 152/75
[2018-05-17 19:40] VITALS: BP 166/71
[2018-05-17] MEDS: ATORVASTATIN 10 MG TABLET GT SCH (22:24)
[2018-05-18 01:13] VITALS: BP 152/65
[2018-05-18] MEDS: METRONIDAZOLE PMX 500MG/100ML 100 ML IV SCH (05:51)
[2018-05-18] MEDS: GUAIFENESIN 100 MG/5 ML, 5ML UDC GT SCH ×3 (05:51→17:30)
[2018-05-18] MEDS: INSULIN LISPRO 100 UNITS/ML, PEN SQ-INSULIN SCH ×3 (06:10→17:00)
[2018-05-18 08:00] VITALS: BP 133/84
[2018-05-18] MEDS: POTASSIUM CHLORIDE 20 MEQ PACKET GT SCH (08:00)
[2018-05-18] MEDS: PANTOPRAZOLE GRAN. PKT 40 MG GT SCH ×2 (08:00→17:00)
[2018-05-18] MEDS: INSULIN HUMULIN 70/30, 3ML PEN SQ-INSULIN SCH (09:00)
[2018-05-18] MEDS: FUROSEMIDE 20 MG TABLET GT SCH (09:00)
[2018-05-18] MEDS: AMLODIPINE 5 MG TABLET PO SCH (09:00)
[2018-05-18] MEDS: FLUTICASONE NASAL SPRAY 16GM NAS SCH (09:00)
[2018-05-18] MEDS: LEVETIRACETAM 100 MG/ML ORAL SOL GT SCH (09:00)
[2018-05-18] MEDS: CALCIUM/VITAMIN D3 250-125 TABLET GT SCH (09:00)
[2018-05-18] MEDS: DOCUSATE 50 MG/5 ML, 10ML UDC GT SCH (09:00)
[2018-05-18] MEDS: LOSARTAN 50MG TABLET GT SCH (09:00)
[2018-05-18] MEDS: TEMPLATE NON-FORMULARY MED. (Sitagliptin Phosphate** (Januvia**) 50 MG) GT SCH (09:00)
[2018-05-18] MEDS: NEUTRA PHOS K 250 MG TABLET PEG SCH (09:00)
[2018-05-18] MEDS ORDERED: metroNIDAZOLE 500 MG TABLET GT SCH (11:00)
[2018-05-18] MEDS ORDERED: ACET325T14 PEG (11:07)
[2018-05-18] MEDS ORDERED: POTA20PA25 GT (11:07)
[2018-05-18] MEDS ORDERED: GUAI100L11 GT (11:07)
[2018-05-18] MEDS ORDERED: AMLO-150 PO ×2 (11:07→16:00)
[2018-05-18] MEDS ORDERED: PHOS250T3 PEG ×2 (11:07→16:00)
[2018-05-18] MEDS ORDERED: INSU100I11 SQ-INSULIN (11:07)
[2018-05-18] MEDS ORDERED: ENOX40SY4 SQ (11:07)
[2018-05-18] MEDS ORDERED: CEFD250S26 GT ×2 (11:07→16:00)
[2018-05-18] MEDS ORDERED: METR500T GT ×2 (11:07→16:00)
[2018-05-18] MEDS: ENOXAPARIN 40 MG/0.4 ML SQ SCH (14:18)
[2018-05-18 15:04] VITALS: BP 101/49
[2018-05-18] MEDS ORDERED: CEFDINIR 250 MG/5 ML, ORAL SUSP GT SCH (21:00)
== END 2018-05-18 18:24 | DRG 871 ==
LOC: ED 11:20 → EDIP 13:07 → 3NE 14:11
PROVIDERS: ADMIT Hospitalist; ATTEND Hospitalist
PROC: 0T9B70Z Drainage of Bladder with Drainage Device, Via Natural or Artificial Opening (ICD-10-PCS; principal; 2018-05-12)
DX: A41.9 Sepsis, unspecified organism (principal); G93.41 Metabolic encephalopathy; J69.0 Pneumonitis due to inhalation of food and vomit; E87.2 Acidosis; E87.0 Hyperosmolality and hypernatremia; I69.354 Hemiplegia and hemiparesis following cerebral infarction affecting left non-dominant side; N39.0 Urinary tract infection, site not specified; C61 Malignant neoplasm of prostate; E11.65 Type 2 diabetes mellitus with hyperglycemia; E78.5 Hyperlipidemia, unspecified; E83.39 Other disorders of phosphorus metabolism; E87.6 Hypokalemia; I10 Essential (primary) hypertension; K21.9 Gastro-esophageal reflux disease without esophagitis; R13.10 Dysphagia, unspecified; Z79.4 Long term (current) use of insulin; Z87.891 Personal history of nicotine dependence; Z93.1 Gastrostomy status; Z90.49 Acquired absence of other specified parts of digestive tract; B96.1 Klebsiella pneumoniae [K. pneumoniae] as the cause of diseases classified elsewhere
CPT/HCPCS: 36415; 70450; 71045; 80048; 80053; 81001; 82962; 83036; 83605; 83735; 84100; 84145; 85025; 87040; 87077; 87086; 87186; 87324; 87400; 93005; 93306; 94640; 96361; 96374; 99285; G0378; J0456; J0696; J1650; J2543; J3480; J7613; 92523-GN; J1815; J7030; J7050

== ENCOUNTER 2018-08-24 14:01 | Emergency (ER) | payer MEDICARE ==
[~2018-08-24 14:01] MED LIST changes: +ACET325T14 PEG; +ATOR10TA GT; +CALC-116 GT; +CEFD250S26 GT; +D3 GT; +ENOX40SY4 SQ; +FLUTICASONE PROP NAS; +FURO20TA3 GT; +GUAI100L11 GT; +HUM100VI6 SQ; +INSU100I11 SQ-INSULIN; +LEVE100S GT; +LOSA100T14 GT; +METR500T GT; +NUT.237L23 GT; +OMEP-110 GT; +PHOS250T3 PEG; +POTA20PA25 GT; +SENN-52 GT; +SENN8.6T64 GT; +SITA50TA GT
--- NOTE | 2018-08-24 14:37 | NUR ---
PT HAS HAD A COUGH FOR ONE WEEK WITH RALES AND RONCHI BILATERALLY. REQUIRED STAFF TO PICK HIM UP AND PLACE HIM IN BED. PT LIVES AT HOME WITH . 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
[2018-08-24 14:50] LABS: BASOPHILS # (AUTO) 0.02 x10^3/uL (0-0.1); BASOPHILS % (AUTO) 0 % (0-1); EOSINOPHILS # (AUTO) 0.16 x10^3/uL (0-0.4); EOSINOPHILS % (AUTO) 1 % (1-7); LYMPHOCYTES # (AUTO) 1.34 x10^3/uL (1-3.4); LYMPHOCYTES % (AUTO) 9 % (22-44); MD NO; MEAN CORPUSCULAR HEMOGLOBIN 31.3 pg (27.5-34.5); MEAN CORPUSCULAR HGB CONC 33.8 g/dL (33.2-36.2); MEAN CORPUSCULAR VOLUME 92.7 fL (81-97); MEAN PLATELET VOLUME 10.2 fL (7.4-10.4); MONOCYTES # (AUTO) 0.87 x10^3/uL (0.2-0.8); MONOCYTES % (AUTO) 6 % (2-9); NEUTROPHILS % (AUTO) 84 % (42-75); PLATELET COUNT 240 x10^3/uL (130-400); RED BLOOD COUNT 4.33 x10^6/uL (4.38-5.82); RED CELL DISTRIBUTION WIDTH 13.7 % (9.4-14.8)
[2018-08-24 15:27] LABS: ANION GAP 10 mmol/L (5-15); CALCIUM 8.9 mg/dL (8.5-10.1); CHLORIDE 104 mmol/L (98-107); CREATININE 0.91 mg/dL (0.7-1.3)
--- NOTE | 2018-08-24 16:38 | NUR ---
AWAITING DISPO. TALKING WITH . NO DISTRESS
[2018-08-24 18:10] VITALS: BP 144/65
--- NOTE | 2018-08-24 18:11 | NUR ---
RESTING WITH EYES CLOSED
--- NOTE | 2018-08-24 19:14 | NUR ---
TASK RN: PT D/C HOME WITH . TOTAL LIFT X 2 FROM GURNEY TO WHEELCHAIR. D/C INST REVIEWED WITH AND QUESTIONS ANSWERED. VERBALIZES UNDERSTANDING
== END 2018-08-24 19:16 | disposition home or self-care (01) ==
LOC: ED 15:10
DX: J18.9 Pneumonia, unspecified organism (principal); R05 Cough; E11.9 Type 2 diabetes mellitus without complications; E78.5 Hyperlipidemia, unspecified; Z87.891 Personal history of nicotine dependence; Z88.1 Allergy status to other antibiotic agents; Z86.73 Personal history of transient ischemic attack (TIA), and cerebral infarction without residual deficits; Z90.49 Acquired absence of other specified parts of digestive tract
CPT/HCPCS: 36415; 71045; 80048; 82040; 83605; 84145; 85025; 87040; 99284